=== PATIENT | male | born 1980 | race African-American/Black ===

== ENCOUNTER 2019-05-22 00:45 | Emergency (ER) | payer MEDICAID, OTHER ==
[~2019-05-22] VITALS: Ht 172.7 cm; Wt 75.0 kg
[2019-05-22] MEDS ORDERED: METHYLPREDNISOLONE SOD SUCC 125 MG/2 ML VIAL IV STA (01:22)
[2019-05-22] MEDS ORDERED: IPRATROPIUM BROMIDE (0.02%) 0.5MG/2.5ML NEB HHN STA (01:22)
[2019-05-22] MEDS ORDERED: MAGNESIUM 2 G PREMIX 50 ML IV STA (01:22)
[2019-05-22] MEDS ORDERED: ALBUTEROL (0.083%) 2.5MG/3ML NEB HHN STA (01:22)
[2019-05-22 05:56] VITALS: BP 122/70
== END 2019-05-22 06:13 | disposition home or self-care (01) ==
LOC: ER 00:45
DX: J45.909 Unspecified asthma, uncomplicated (principal)
CPT/HCPCS: 71045; 94640; 96365; 96366; 96375; 99283; J2930; J3475; J7611; Z7610

== ENCOUNTER 2021-07-14 04:16 | Emergency (ER) | payer OTHER ==
[~2021-07-14] VITALS: Ht 162.6 cm; Wt 70.0 kg
[2021-07-14 04:29] VITALS: BP 138/95
== END 2021-07-14 07:29 | disposition left against medical advice (07) ==
LOC: ER 04:16
DX: Z20.822 Contact with and (suspected) exposure to COVID-19 (principal); J45.909 Unspecified asthma, uncomplicated
CPT/HCPCS: 99283; C9803; U0003; U0005

== ENCOUNTER 2024-03-25 16:57 | Emergency (ER) | payer OTHER ==
[~2024-03-25] VITALS: Ht 172.7 cm; Wt 75.0 kg
[2024-03-25 17:05] VITALS: O2SAT 99
[2024-03-25 17:30] VITALS: BP 122/74; PULSE 84; RESP 18; TEMP 97.9; O2SAT 96
[2024-03-25] MEDS ORDERED: DEXAMETHASONE 2MG TABLET PO ONE (17:45)
[2024-03-25] MEDS: DEXAMETHASONE 4MG TABLET PO NR (17:59)
[2024-03-25] MEDS ORDERED: AMOX-494 MT (19:02)
== END 2024-03-25 18:07 | disposition home or self-care (01) ==
LOC: ER 16:57
DX: J18.9 Pneumonia, unspecified organism (principal); J45.909 Unspecified asthma, uncomplicated; Z20.822 Contact with and (suspected) exposure to COVID-19
CPT/HCPCS: 99284; 71046; 87426; 87804 ×2; J8540